=== PATIENT | male | born 1970 | race Two or more races ===

== ENCOUNTER 2021-03-27 20:28 | Emergency (ER) | payer MEDICAID ==
[~2021-03-27] VITALS: Ht 177.8 cm; Wt 111.4 kg
[2021-03-27 21:13] LABS: ALANINE AMINOTRANSFERASE 34 U/L (12-78); ALBUMIN 3.6 g/dL (3.4-5.0); ANION GAP 9 mmol/L (5-15); CALCIUM 8.4 mg/dL (8.5-10.1); CHLORIDE 106 mmol/L (98-107)
[2021-03-27 21:16] LABS: ALKALINE PHOSPHATASE 87 U/L (45-117); BASOPHILS % (AUTO) 1 % (0-1); BILIRUBIN,TOTAL 0.3 mg/dL (0.2-1.0); EOSINOPHILS % (AUTO) 2 % (1-7); LYMPHOCYTES % (AUTO) 49 % (22-44); MEAN CORPUSCULAR HEMOGLOBIN 28.2 pg (27.5-34.5); MEAN PLATELET VOLUME 9.3 fL (7.4-10.4); MONOCYTES % (AUTO) 9 % (2-9); NEUTROPHILS % (AUTO) 40 % (42-75); PLATELET COUNT 245 x10^3/uL (130-400); RED BLOOD COUNT 5.43 x10^6/uL (4.38-5.82); RED CELL DISTRIBUTION WIDTH 13.3 % (9.4-14.8); TOTAL PROTEIN 7.4 g/dL (6.4-8.2)
--- NOTE | 2021-03-27 21:38 | NUR ---
PT STATES HE IS 30 DAYS INTO REHAB PROGRAM FOR METH AND ALCOHOL. THIS IS WHEN SYMPTOMS BEGAN WHEN HE BEGAN TX. C/O OF DIARRHEA. REPORTS SOFT THEN WATERY AND BROWN COLORATION. C/O DRY MOUTH, AND URINATING A LOT WELL TODAY. ATTACHED TO MONITORS. VSS WITH ELEVATED BP. BED IN LOW POSITION. RAILS ENGAGED. CALL LIGHT WITHING REACH. TM.
[2021-03-27 22:49] LABS: CLOSTRIDIUM DIFFICILE ANTIGEN NEGATIVE; CLOSTRIDIUM DIFFICILE TOXIN NEGATIVE (Negative)
--- NOTE | 2021-03-27 23:16 | NUR ---
PT AMBULATED TO BATHROOM, URINATED, BACK IN BED. ATTACHED TO MONITORS. VSS. NADN. BED IN LOW POSITION, RAILS ENGAGED, CALL LIGHT WITHIN REACH. NO ADDITONAL QUESTIONS OR NEEDS AT THIS TIME.
[2021-03-28 00:45] VITALS: BP 142/74
--- NOTE | 2021-03-28 00:47 | NUR ---
Patient given discharge instructions and they have confirmed that they understand the instructions. Patient ambulatory with steady gait. NAD, all questions answered appropriately, denies additional needs at this time. No personal belongings left in room after discharge. Pt given phone to call [facility] to pick pt up.
== END 2021-03-28 00:49 | disposition home or self-care (01) ==
LOC: ED 23:59
DX: R19.7 Diarrhea, unspecified (principal); T38.3X5A Adverse effect of insulin and oral hypoglycemic [antidiabetic] drugs, initial encounter; E11.9 Type 2 diabetes mellitus without complications; F17.210 Nicotine dependence, cigarettes, uncomplicated; Y92.9 Unspecified place or not applicable
CPT/HCPCS: 36415; 74021; 80053; 83036; 85025; 87324; 89055; 99284